=== PATIENT | male | born 1955 | race Caucasian/White ===

== ENCOUNTER 2021-06-14 13:42 | Emergency (ER) | payer MEDICARE ==
[~2021-06-14] VITALS: Ht 172.7 cm; Wt 72.6 kg
[2021-06-14 14:11] LABS: BASOPHILS ABSOLUTE AUTO 0.03 K/mm3 (0.00-0.23); BASOPHILS PERCENT AUTO 0 % (0-2); EOSINOPHILS ABSOLUTE AUTO 0.13 K/mm3 (0.00-0.68); EOSINOPHILS PERCENT AUTO 1 % (0-6); Hematocrit 45.4 % (37.0-53.0); IMMATURE GRAN ABSOLUTE AUTO 0.06 K/mm3 (0.00-0.10); IMMATURE GRAN PERCENT AUTO 1 % (0-1); LYMPHOCYTES ABSOLUTE AUTO 1.53 K/mm3 (0.84-5.20); LYMPHOCYTES PERCENT AUTO 13 % (21-46); MONOCYTES ABSOLUTE AUTO 0.55 K/mm3 (0.16-1.47); MONOCYTES PERCENT AUTO 5 % (4-13); Mean Corpuscular HGB 32.5 pg (26.0-34.0); Mean Corpuscular HGB Conc 35.2 g/dL (31.5-36.5); Mean Corpuscular Volume 92 fL (80-100); Mean Platelet Volume 10.2 fL (9.1-12.4); NEUTROPHILS ABSOLUTE AUTO 9.95 K/mm3 (1.96-9.15); NEUTROPHILS PERCENT AUTO 81 % (41-73); Platelet Count 247 K/mm3 (150-400); RDW Coefficient Variation 12.9 % (11.7-14.2); RDW Standard Deviation 43.5 fL (35.1-46.3); Red Blood Cell Count 4.93 M/mm3 (4.30-5.90); White Blood Cell Count 12.25 K/mm3 (4.00-11.30)
[2021-06-14 15:45] LABS: Anion Gap 11 mmol/L (6-16); Blood Urea Nitrogen 20 mg/dL (8-24); CO2, Blood 19 mmol/L (21-32); Calcium, Blood 8.8 mg/dL (8.5-10.1); Chloride, Blood 111 mmol/L (98-108); Creatinine, Blood 1.05 mg/dL (0.60-1.20); Glomerular Filtration Rate >60 (60-); Glucose, Blood 129 mg/dL (70-99); Potassium, Blood 3.8 mmol/L (3.5-5.5); Sodium, Blood 141 mmol/L (136-145)
[2021-06-14 16:21] LABS: Source, Urine Clean Catch
[2021-06-14 16:57] LABS: Appearance, Urine Clear (Clear); Bilirubin, Urine Neg (Neg); Blood, Urine 5+ (Neg); Color, Urine Yellow (P-Yellow); Glucose Qualitative, Urine Neg (Neg); Ketones, Urine 1+ (Neg); Leukocyte Esterase, Urine Neg (Neg); Nitrite, Urine Neg (Neg); Protein, Urine 1+ (Neg); Specific Gravity, Urine 1.015 (1.003-1.022); Urobilinogen, Urine NORM (Normal)
[2021-06-14 17:18] LABS: Bacteria Mod /hpf; Mucus Mod (0-Heavy); Squamous Epithelial Cells Few /hpf (Few); White Blood Cells, Urine 0-2 /hpf (0-5)
[2021-06-14] MEDS ORDERED: IBUP400 PO (17:30)
[2021-06-14] MEDS ORDERED: ONDA4ODT MM (17:30)
[2021-06-14] MEDS ORDERED: ACET325 PO (17:30)
[2021-06-14] MEDS ORDERED: Percocet 5-3251 EACH PO (17:30)
[2021-06-14] MEDS ORDERED: TAMS.4ER PO (17:30)
== END 2021-06-14 17:44 | disposition home or self-care (01) ==
LOC: ER 13:42
PROVIDERS: Student in an Organized Health Care Education/Training Program
DX: N13.2 Hydronephrosis with renal and ureteral calculous obstruction (principal)
CPT/HCPCS: 36415; 71046; 74176; 80048; 81001; 85025; 87086; 93005; 93010; 96374; 99285-25; A9270; J2270; J7030

== ENCOUNTER 2021-10-24 14:45 | Inpatient (IN) | payer MEDICARE ==
[~2021-10-24] VITALS: Ht 172.7 cm; Wt 76.7 kg
[~2021-10-24 14:45] MED LIST: ACET325 PO; IBUP400 PO; ONDA4ODT MM; Percocet 5-3251 EACH PO; TAMS.4ER PO
[2021-10-24] MEDS ORDERED: ITRACONAZOLE PO (15:19)
[2021-10-24 15:36] LABS: BASOPHILS ABSOLUTE AUTO 0.03 K/mm3 (0.00-0.23); BASOPHILS PERCENT AUTO 0 % (0-2); EOSINOPHILS PERCENT AUTO 0 % (0-6); Hematocrit 44.9 % (37.0-53.0); IMMATURE GRAN PERCENT AUTO 1 % (0-1); LYMPHOCYTES ABSOLUTE AUTO 0.72 K/mm3 (0.84-5.20); LYMPHOCYTES PERCENT AUTO 4 % (21-46); MONOCYTES ABSOLUTE AUTO 1.52 K/mm3 (0.16-1.47); MONOCYTES PERCENT AUTO 8 % (4-13); Mean Corpuscular HGB 31.7 pg (26.0-34.0); Mean Corpuscular HGB Conc 35.6 g/dL (31.5-36.5); Mean Corpuscular Volume 89 fL (80-100); Mean Platelet Volume 9.9 fL (9.1-12.4); NEUTROPHILS ABSOLUTE AUTO 17.99 K/mm3 (1.96-9.15); NEUTROPHILS PERCENT AUTO 88 % (41-73); Platelet Count 222 K/mm3 (150-400); RDW Coefficient Variation 12.4 % (11.7-14.2); RDW Standard Deviation 40.8 fL (35.1-46.3); Red Blood Cell Count 5.05 M/mm3 (4.30-5.90); White Blood Cell Count 20.36 K/mm3 (4.00-11.30)
[2021-10-24 15:52] LABS: Albumin, Blood 3.7 g/dL (3.4-5.0); Albumin/Globulin Ratio 1.3 (0.8-1.8); Bun/Creatinine Ratio 17.9 (12.0-20.0); Calcium, Blood 8.9 mg/dL (8.5-10.1); Creatinine, Blood 0.78 mg/dL (0.60-1.20); Globulin, Blood 2.9 g/dL (2.2-4.0); Potassium, Blood 3.8 mmol/L (3.5-5.5); Total Protein, Blood 6.6 g/dL (6.4-8.2)
[2021-10-24 18:27] LABS: Influenza A, PCR NEGATIVE (NEGATIVE); Influenza B, PCR NEGATIVE (NEGATIVE); Resp Syncytial Virus, PCR NEGATIVE (NEGATIVE); SARS-Cov-2 (COVID-19) PCR, MMC NEGATIVE (NEGATIVE)
[2021-10-24] MEDS ORDERED: OXYCODONE-ACET1 EAC3 PO (20:01)
[2021-10-24] MEDS ORDERED: FLOMAX0.4 MG PO (20:02)
--- NOTE | 2021-10-25 04:54 | NUR ---
SHIFT SUMMARY PT ER ADMIT THIS SHIFT FOR APPENDICITIS. SEVERE PAIN THAT WAS NOT BEING RELEIVED WITH FENTANYL. PT ALSO SPIKING FEVERS OFF AND ON SINCE ADMISSION. DR. REYES NOTIFIED OF PT INCREASED PAIN THAT WAS NOT RESPONDING TO FENTANYL WELL FEVERS. PT SWITCHED TO DILAUDID INSTEAD AND TYLENOL ORERED FOR FEVER. NON PHARM METHODS USED FOR FEVER. PT IS AFEBRILE AT THIS TIME, AND PAIN IS MUCH BETTER MANAGED WITH DILAUDID. PLAN IS FOR SURGERY TODAY. PT HAS BEEN NPO SINCE MIDNIGHT. IVF INFUSING. PT RESTS OFF AND ON T/O THE NIGHT. BED IN LOWEST POSITION, CALL LIGHT WITHIN REACH.
--- NOTE | 2021-10-25 10:46 | NUR ---
Pt. is awake in bed and welcomes my visit. Pt. is unsettled about the implications of an irregulkar heartbeat, and the delay it is causing in addressing his appendicitis. Listen theraputicialy with a calming presence. Pt. displays evidence of trust and engagement. Explore issues of levi and belief. Medical staff come to transfer Pt. to [facility]. Pt. verbalized gratitude for the spiritual care visit. Will follow up with Pt. once he settles in to PCU room.
--- NOTE | 2021-10-25 11:06 | NUR ---
TRANSFER SUMMARY PT A&OX4, VSS/RA, PAIN MANAGED WITH 1 MG DILAUDID Q2/PRN, VOIDING/URINAL, NPO, DR AVILA IN TO SEE PT, REQ HOSP CONSULT FOR ARRHYTHMIA. DR HAYDEN IN TO SEE PT. REPORT PROVIDED TO BASSEM [facility]. PT TRANSFERRED IN BED, WITH ALL PERSONAL POSSESSIONS TO PCU 16.
--- NOTE | 2021-10-25 13:58 | NUR ---
1344- PATIENT TRANSFERED TO [facility] VIA BED. CONTINUOUS 3 LEAD EKG AND INTERMITTENT BP INTACT. PATIENT BIOX 87% ON RA. 2L O2/NC APPLIED.
--- NOTE | 2021-10-25 18:03 | NUR ---
SHIFT SUMMARY PT HAS BEEN RESTING IN BED SINCE RETURNING FROM SURGERY. PT C/O PAIN TO RIGHT LOWER QUANDRANT, 7/10. REST, REPOSITIONING, AND MEDICATION PER EMAR HAVE HELPED TO REDUCE PAIN TO 3/10. PT HAS BEEN PLEASANT, COOPERATIVE, AND CALLS APPROPRIATELY FOR ASSISTANCE. DILTIAZEM INFUSION WAS STARTED PRIOR TO SURGERY. PT CONVERTED TO SINUS RHYTHM AT APPROXIMATELY 1330. PT HAS MAINTAINED SINUS RHYTHM, 80'S. PROVIDER WAS UPDATED ON PT STATUS AND INSTRUCTIONS WERE GIVEN TO CONTINUE DILTIAZEM THROUGH THE NIGHT, TITRATE NEEDED. BLOOD PRESSURE HAS TOLERATED DILTIAZEM WELL, SBP RANGES 105-140. SURGICAL SITES ARE CLEAN, DRY, AND INTACT. STEPHENIE DRAIN HAS RETURNED SMALL AMOUNTS OF SEROSANGUINEOUS FLUID.
--- NOTE | 2021-10-25 18:39 | NUR ---
Pt. is awake in bed and welcomes my visit. Pt. is distressed over the pain from infection after his surgery this afternoon. Listen empatheticially with a calming spirit. Re-establish rapport. Pt. displays evidence of confidence and trust. Prayed with Pt. Pt. verbalized gratitude for the spiritual care visit.
[2021-10-26 04:19] LABS: BASOPHILS ABSOLUTE AUTO 0.02 K/mm3 (0.00-0.23); BASOPHILS PERCENT AUTO 0 % (0-2); EOSINOPHILS PERCENT AUTO 0 % (0-6); Hematocrit 40.5 % (37.0-53.0); Hemoglobin 14.4 g/dL (13.5-17.5); IMMATURE GRAN PERCENT AUTO 1 % (0-1); LYMPHOCYTES ABSOLUTE AUTO 0.36 K/mm3 (0.84-5.20); LYMPHOCYTES PERCENT AUTO 2 % (21-46); MONOCYTES ABSOLUTE AUTO 0.77 K/mm3 (0.16-1.47); MONOCYTES PERCENT AUTO 4 % (4-13); Mean Corpuscular HGB Conc 35.6 g/dL (31.5-36.5); Mean Corpuscular Volume 90 fL (80-100); Mean Platelet Volume 10.2 fL (9.1-12.4); NEUTROPHILS ABSOLUTE AUTO 16.16 K/mm3 (1.96-9.15); NEUTROPHILS PERCENT AUTO 93 % (41-73); Platelet Count 188 K/mm3 (150-400); RDW Coefficient Variation 12.5 % (11.7-14.2); RDW Standard Deviation 41.2 fL (35.1-46.3); White Blood Cell Count 17.41 K/mm3 (4.00-11.30)
[2021-10-26 04:36] LABS: Albumin, Blood 2.6 g/dL (3.4-5.0); Anion Gap 7 mmol/L (6-16); Blood Urea Nitrogen 18 mg/dL (8-24); Bun/Creatinine Ratio 24.4 (12.0-20.0); CHOL/HDL RATIO 1.9; CO2, Blood 24 mmol/L (21-32); Calcium, Blood 8.5 mg/dL (8.5-10.1); Chloride, Blood 106 mmol/L (98-108); Cholesterol 117 mg/dL (50-200); Creatinine, Blood 0.74 mg/dL (0.60-1.20); Glomerular Filtration Rate 100 (60-); Glucose, Blood 145 mg/dL (70-99); HDL Cholesterol 62 mg/dL (>39); LDL/HDL RATIO 0.7; Low Density Lipoprotein Chol 44 mg/dL (0-110); Magnesium, Blood 2.3 mg/dL (1.6-2.4); Phosphorus, Blood 2.2 mg/dL (2.5-4.9); Potassium, Blood 4.4 mmol/L (3.5-5.5); Sodium, Blood 137 mmol/L (136-145); Triglycerides 56 mg/dL (30-160); Very Low Density Lipoprot Chol 11 mg/dL (6-32)
--- NOTE | 2021-10-26 05:52 | NUR ---
FINISHING MANAGER SUMMARY PT IS ALERT AND COMMUNICATING APPROPRIATELY. PT HAS FLIPPED BACK AND FORTH FROM AFIB TO SR THROUGHOUT THE SHIFT W THE CARDIZEM ON AT 5MG/HR ALL SHIFT. PT'S HR REMAINED 60-118 THIS SHIFT. BP WNL AND STABLE. PT REQUIRING 2L NC THIS SHIFT TO MAINTAIN O2 SATS >92%. PT AFEBRILE. PT REPORTED PAIN AT THE START OF THE SHIFT BUT REPORTED THAT HE WAS FEELING MUCH BETTER THE SHIFT WENT ON REQUIRING ONLY 2 TABS OF NORCO AND NO IV DILAUDID THIS SHIFT. ABDOMEN STILL FIRM AND SLIGHTLY TENDER. STEPHENIE DRAIN PRODUCING 100 ML OF SEROSANGUINEOUS FLUID THIS SHIFT. PT ASYMPTOMATIC TO THE HEART ARRYTHMIAS OFTEN ASLEEP HIS RYTHYM WENT BACK AND FORTH FROM AFIB TO SR. LR RUNNING AT 125ML/HR. CARDIZEM GTT RUNNING AT 5MG/HR. WILL REPORT TO ONCOMING RN.
--- NOTE | 2021-10-26 13:45 | NUR ---
TRANSFER TO SURGICAL FLOOR ARRIVES & TRANSFERS SELF TO HOSPT BED. ALERT, ORIENTED, PLEASANT. C/O ABD PAIN & TAKING IN CLEAR LQ's WELL. STEPHENIE w/ SS FLUID. WILL MEDICATE & ALLOW SPIRITUAL CARE VISIT.
--- NOTE | 2021-10-26 14:50 | NUR ---
Pt. is awake in be and welcomes my visit. Quickly re-establish rapport as Pt. verbalizes details of his surgical procedure. Pt. displays thankfulness for God's protection during the surgery, particularly that his heart (Afib) did not complicate the procedure. Facilitated a lengthier life review. Pt. displayed evidence of confidence and engagement. Prayed with Pt. Pt. verbalized gratitude for the spiritual care visit.
--- NOTE | 2021-10-26 15:00 | NUR ---
recvd report from previous RN Sisi, pt sitting at bedside, reports he went to the bathroom on his own; this RN requested pt call for standby in the future. pt understands this request. pt reports no nausea, abdoment painful RLQ. laparascopic sites x 4 intact with gauze and tegaderm, dried drainage visible. LLQ STEPHENIE drain patent, serosanguinous. a/o x 4, pleasant/cooperative, call light within reach
--- NOTE | 2021-10-26 17:32 | NUR ---
SHIFT SUMMARY (SECOND HALF): A/O X 4, PLEASANT/COOPERATIVE, NO ACUTE CHANGES. PT TOLERATING SMALL AMOUNTS OF CLEARS. AMBULATING TO RESTROOM. PT RATES PAIN AT 4-5/10 WITH ANALAGESIA PER MAR. LAPARASCOPIC SITES WNL.
[2021-10-27 04:06] LABS: BASOPHILS ABSOLUTE AUTO 0.02 K/mm3 (0.00-0.23); BASOPHILS PERCENT AUTO 0 % (0-2); EOSINOPHILS ABSOLUTE AUTO 0.04 K/mm3 (0.00-0.68); EOSINOPHILS PERCENT AUTO 0 % (0-6); Hematocrit 42.8 % (37.0-53.0); Hemoglobin 14.6 g/dL (13.5-17.5); IMMATURE GRAN ABSOLUTE AUTO 0.07 K/mm3 (0.00-0.10); IMMATURE GRAN PERCENT AUTO 1 % (0-1); LYMPHOCYTES ABSOLUTE AUTO 1.14 K/mm3 (0.84-5.20); LYMPHOCYTES PERCENT AUTO 8 % (21-46); MONOCYTES ABSOLUTE AUTO 0.84 K/mm3 (0.16-1.47); MONOCYTES PERCENT AUTO 6 % (4-13); Mean Corpuscular HGB Conc 34.1 g/dL (31.5-36.5); Mean Corpuscular Volume 94 fL (80-100); Mean Platelet Volume 10.5 fL (9.1-12.4); NEUTROPHILS ABSOLUTE AUTO 12.16 K/mm3 (1.96-9.15); NEUTROPHILS PERCENT AUTO 85 % (41-73); Platelet Count 204 K/mm3 (150-400); RDW Coefficient Variation 12.7 % (11.7-14.2); RDW Standard Deviation 43.9 fL (35.1-46.3); Red Blood Cell Count 4.56 M/mm3 (4.30-5.90); White Blood Cell Count 14.27 K/mm3 (4.00-11.30)
[2021-10-27 04:26] LABS: Albumin, Blood 2.7 g/dL (3.4-5.0); Anion Gap 7 mmol/L (6-16); Blood Urea Nitrogen 18 mg/dL (8-24); Bun/Creatinine Ratio 26.9 (12.0-20.0); CO2, Blood 23 mmol/L (21-32); Calcium, Blood 8.9 mg/dL (8.5-10.1); Chloride, Blood 111 mmol/L (98-108); Creatinine, Blood 0.67 mg/dL (0.60-1.20); Glomerular Filtration Rate 103 (60-); Glucose, Blood 104 mg/dL (70-99); Magnesium, Blood 2.5 mg/dL (1.6-2.4); Phosphorus, Blood 1.6 mg/dL (2.5-4.9); Potassium, Blood 3.9 mmol/L (3.5-5.5); Sodium, Blood 141 mmol/L (136-145)
--- NOTE | 2021-10-27 04:51 | NUR ---
MINIBUS DRIVER SUMMARY PT AAOX4 AND PLEASANT. INDEPENDENT TO BATHROOM. PT REPORTS NO BM TONIGHT BUT HAS PASSED FLATUS T/O THE NIGHT. PAIN MANAGED WELL WITH NORCO 5/325. SMALL AMOUNTS OF SEROSANGUINOUS FLUID IN ABD STEPHENIE DRAIN. NO CHANGES TO ABD LAP SITE DRESSINGS. VSS, WILL CONTINUE TO MONITOR.
[2021-10-27] MEDS ORDERED: DILT180 PO (08:58)
[2021-10-27] MEDS ORDERED: ELIQUIS5 M2 PO (08:58)
[2021-10-27] MEDS ORDERED: AMOCLA875 PO (08:59)
[2021-10-27] MEDS ORDERED: Norco 5-325 Ta1 EACH PO (08:59)
--- NOTE | 2021-10-27 09:30 | NUR ---
DISCHARGE NOTE: PATIENT WAS EDUCATED ON DISCHARGE INSTRUCTIONS. PATIENT VERBALIZED UNDERSTANDING OF INSTRUCTIONS. HARD PERSCRIPTIONS ARE IN INSTRUCTIONS FOLDER. BOTH IV WERE TAKEN OUT AND WNL. PAIN IS MANAGED WITH PO PAIN MEDICATIONS. PATIENT NOW HAS THREE LAP SITES WITH TWO HAVING BANDAIDS THAT ARE C/D/I. PATIENT IS TOLERATING PO INTAKE AND IS VOIDING/PASSING GAS. ABD IS TENDER TO TOUCH BUT IS SOFT. PATIENT IS DRESSED AND HAS ITEMS IN THE ROOM GATHERED. HE WILL BE WHEELCHAIRED DOWN TO HIS BROTHERS CAR WHEN HE ARRIVES AND WILL BE TAKING HIM HOME.
--- NOTE | 2021-10-27 09:54 | NUR ---
PATIENT WAS WHEELCHAIRED DOWN TO BROTHERS CAR TO BE TAKEN HOME.
== END 2021-10-27 09:58 | disposition home or self-care (01) | DRG 338 ==
LOC: ER 14:45 → PCU 14:46 → SURS 14:46 → ER 20:35 → SURS 21:12 → PCU 10-25 10:42 → SURS 10-26 13:51
PROVIDERS: Family Medicine; Student in an Organized Health Care Education/Training Program; Surgery; ADMIT Surgery
PROC: 0DTJ4ZZ Resection of Appendix, Percutaneous Endoscopic Approach (ICD-10-PCS; principal; 2021-10-25 14:00)
DX: K35.32 Acute appendicitis with perforation, localized peritonitis, and gangrene, without abscess (principal); J95.821 Acute postprocedural respiratory failure; I48.20 Chronic atrial fibrillation, unspecified; J98.11 Atelectasis; Z20.822 Contact with and (suspected) exposure to COVID-19; K21.9 Gastro-esophageal reflux disease without esophagitis; E78.5 Hyperlipidemia, unspecified; N20.0 Calculus of kidney; D72.829 Elevated white blood cell count, unspecified; Z98.890 Other specified postprocedural states; Z79.899 Other long term (current) drug therapy
CPT/HCPCS: 0241U; 36415; 71046; 74177; 80053; 80061; 80069; 83690; 83735; 85025; 88304; 93306; 94760; 96361; 96365-59; 96375; 96376; 99285-25; A9270; G0378; J0330; J0694; J1100; J1170; J1885; J2370; J2405; J2704; J3010; J3475; J3480; J7030; J7120; Q9967

== ENCOUNTER 2024-04-01 12:19 | Emergency (ER) | payer BC, OTHER ==
[~2024-04-01] VITALS: Ht 172.7 cm; Wt 76.7 kg
[~2024-04-01 12:19] MED LIST changes: +AMOCLA875 PO; +DILT180 PO; +ELIQUIS5 M2 PO; +FLOMAX0.4 MG PO; +ITRACONAZOLE PO; +Norco 5-325 Ta1 EACH PO; +OXYCODONE-ACET1 EAC3 PO
[2024-04-01 13:01] LABS: BASOPHILS ABSOLUTE AUTO 0.04 K/mm3 (0.00-0.23); BASOPHILS PERCENT AUTO 0 % (0-2); EOSINOPHILS ABSOLUTE AUTO 0.28 K/mm3 (0.00-0.68); EOSINOPHILS PERCENT AUTO 3 % (0-6); Hemoglobin 17.5 g/dL (13.5-17.5); IMMATURE GRAN ABSOLUTE AUTO 0.06 K/mm3 (0.00-0.10); IMMATURE GRAN PERCENT AUTO 1 % (0-1); LYMPHOCYTES ABSOLUTE AUTO 2.53 K/mm3 (0.84-5.20); LYMPHOCYTES PERCENT AUTO 26 % (21-46); MONOCYTES ABSOLUTE AUTO 0.76 K/mm3 (0.16-1.47); MONOCYTES PERCENT AUTO 8 % (4-13); Mean Corpuscular HGB 32.4 pg (26.0-34.0); Mean Corpuscular HGB Conc 36.5 g/dL (31.5-36.5); Mean Corpuscular Volume 89 fL (80-100); Mean Platelet Volume 9.9 fL (9.1-12.4); NEUTROPHILS ABSOLUTE AUTO 6.11 K/mm3 (1.96-9.15); NEUTROPHILS PERCENT AUTO 62 % (41-73); Platelet Count 269 K/mm3 (150-400); RDW Coefficient Variation 12.4 % (11.7-14.2); RDW Standard Deviation 40.4 fL (35.1-46.3); White Blood Cell Count 9.78 K/mm3 (4.00-11.30)
[2024-04-01 13:32] LABS: Albumin/Globulin Ratio 1.2 (0.8-1.8); Bilirubin, Total 1.7 mg/dL (0.1-1.0); Calcium, Blood 9.9 mg/dL (8.5-10.1); Globulin, Blood 3.2 g/dL (2.2-4.0); Potassium, Blood 4.5 mmol/L (3.5-5.5); Total Protein, Blood 7.2 g/dL (6.4-8.2)
[2024-04-01 16:59] VITALS: BP 136/76
== END 2024-04-01 17:05 | disposition home or self-care (01) ==
LOC: ER 12:19
PROVIDERS: Physician Assistant
DX: R00.2 Palpitations (principal); I48.0 Paroxysmal atrial fibrillation; I25.2 Old myocardial infarction; I48.91 Unspecified atrial fibrillation; Z79.01 Long term (current) use of anticoagulants; Z79.899 Other long term (current) drug therapy
CPT/HCPCS: 71046; 80053; 84484; 85025; 93005; 93010; 99285-25